=== PATIENT | female | born 1950 | race Two or more races ===

== ENCOUNTER 2024-12-24 22:34 | Emergency (ER) | payer MEDICAID, SELFPAY ==
[2024-12-24 22:34] VITALS: BMI 34.7
[2024-12-24 23:12] VITALS: BP 123/83; PULSE 72; RESP 18; TEMP 36.8; O2SAT 98
--- NOTE | 2024-12-24 23:25 | XR_ITS ---
Examination: Abdomen sonogram, Limited Date and time of exam: December 24, 2024, 11:44 PM. Indications: Onset right upper abdominal pain beginning 3 days ago. Technique: Real-time boland scale transabdominal sonographic images of the upper abdomen obtained. Findings: Normal gallbladder. Normal common bile duct 0.3 cm. Pancreas obscured by bowel gas. Liver 13.0 cm smooth contour no focal liver lesions. Normal hepatopedal portal venous flow. Patent IVC. Impression: Normal gallbladder Normal common bile duct
--- NOTE | 2024-12-24 23:25 | EDRME_ITS ---
Rapid Medical Screening Exam [facility] Arrival date/time: 12/24/24 22:34 74F with history of DM and HTN presents to ED with several days of RUQ pain and N/V. Chief Complaint: Abdominal Pain Vital signs: Vital Signs Temperature 98.3 F 12/24/24 23:12 Pulse Rate 72 12/24/24 23:12 Respiratory Rate 18 12/24/24 23:12 Blood Pressure 123/83 12/24/24 23:12 Pulse Oximetry (%) 98 12/24/24 23:12 Oxygen Delivery Method Room Air 12/24/24 23:12
[2024-12-25 00:04] LABS: Basophils # (Auto) 0.0 Thou/mm3 (0.0-0.2); Basophils % (Auto) 1 % (0-2.5); Eosinophils # (Auto) 0.2 Thou/mm3 (0.0-0.5); Eosinophils % (Auto) 3 % (0-10); Hematocrit 39.7 % (36.0-46.0); Hemoglobin 13.2 g/dL (12.0-16.0); Immature Granulocytes Auto 0.02 Thou/mm3 (0.00-0.00); Lymphocytes # (Auto) 2.9 Thou/mm3 (1.0-4.8); Lymphocytes % (Auto) 36 % (10-50); Mean Corpuscular HGB Conc 33.2 g/dl (31.0-37.0); Mean Corpuscular Hemoglobin 31.0 pg (25.0-35.0); Mean Corpuscular Volume 93 fL (80-100); Monocytes # (Auto) 0.5 Thou/mm3 (0.0-0.8); Monocytes % (Auto) 6 % (0-12); Neutrophils # (Auto) 4.3 Thou/mm3 (1.8-7.7); Neutrophils % (Auto) 54 % (37-80); Nucleated Red Blood Cell # 0.00 Thou/mm3 (0.00-0.00); Nucleated Red Blood Cell % 0 /100 WBC (0); Platelet Count 224 Thou/mm3 (140-440); RDW Standard Deviation 42.2 fL (36.4-46.3); Red Blood Count 4.26 Miln/mm3 (4.00-5.20); White Blood Count 7.9 Thou/mm3 (3.6-11.0)
[2024-12-25 00:14] LABS: Alanine Aminotransferase 13 U/L (10-49); Albumin, Serum 4.2 gm/dL (3.4-4.8); Albumin/Globulin Ratio 2.1 (1.2-2.2); Alkaline Phosphatase 99 U/L (46-116); Anion Gap 8 (7-16); Aspartate Amino Transferase 17 U/L (0-34); BUN/Creatinine Ratio 23 Ratio (12-20); Bilirubin,Total 0.4 mg/dL (0.3-1.2); Blood Urea Nitrogen 14 mg/dL (9-23); Calcium 10.2 mg/dL (8.3-10.6); Calcium (Corrected) 10.2 mg/dL (8.5-10.1); Carbon Dioxide 28.1 mMol/L (20.0-31.0); Chloride 108 mMol/L (98-107); Creatinine (Component) 0.6 mg/dL (0.6-1.3); Estimated Creatinine Clearance 86.3 mL/min (>60); Globulin 2.0 gm/dL (2.3-3.5); Glucose 110 mg/dL (74-106); Lipase 49 U/L (12-53); Osmolality,Calculated 288 (275-295); Potassium 4.0 mMol/L (3.4-5.1); Sodium 144 mMol/L (136-145); Total Protein 6.2 gm/dL (5.7-8.2); eGFR > 60 See Note
[2024-12-25 00:28] LABS: Collection Type, Urine Clean Catch
--- NOTE | 2024-12-25 00:32 | XR_ITS ---
Examination: CT abdomen with intravenous contrast CT pelvis with intravenous contrast 2-D coronal reconstructions 2-D sagittal reconstructions Date and time of exam:December 25, 2024, 0059 hrs. Indications: Right upper abdominal pain beginning one week ago.. CTDI: vol (mGy) 25.41 DLP: (mGycm) 1102 Technique: Multiple axial sections of the abdomen and pelvis have been obtained. 64 slice high-resolution scanner used. 3 mm axial sections have been obtained, post intravenous injection 60 cc [id number] 2-D sagittal, coronal reconstructions obtained. Low dose protocols were performed. One or more of the following dose reduction techniques were used; automated exposure control, adjustment of the mA and/or KV according to patient size, use of iterative reconstruction technique. Findings: No focal liver or splenic lesions. No gallstones. No pancreatic or adrenal mass. Mild renal scar formation. No renal or ureteral calculi, no hydronephrosis. Aortic calcification no aneurysmal dilatation. Normal appendix. Colonic diverticulosis, no diverticulitis. No pelvic mass. Bladder intact. Advanced degenerative disc disease L2-L3, L5-S1 Impression: No acute process in the abdomen or pelvis.
--- NOTE | 2024-12-25 00:32 | PD.EDABDPN ---
ED Abdominal Pain RME/HPI General Chief Complaint: Abdominal Pain Stated complaint: PAIN IN UPPER RIGHT QUADRANT Time seen by provider: 12/25/24 00:27 Arrival date/time: 12/24/24 22:34 RME / HPI RME / HPI narrative: 12/24/24 22:34 74F with history of DM and HTN presents to ED with several days of RUQ pain and N/V. DR. MELENDREZ MAIN ED EVALUATION: 74 y/o female with Hx of HTN, Type II DM, and Hypercholesterolemia presents to ED c/o RUQ abdominal pain that radiates to the back x 3 days. Patient also reports 1 day of vomiting. Denies cough. Also denies history of abdominal surgery. She has never experienced this pain before. No other concerns or complaints expressed at this time. Related Data Home Medications ?Medication ?Instructions ?Recorded ?Confirmed aspirin 81 mg tablet,delayed 81 mg PO DAILY 03/30/21 04/02/21 release atorvastatin 10 mg tablet 10 mg PO QDAY 03/30/21 04/02/21 cholecalciferol (vitamin D3) 25 25 mcg PO QDAY 03/30/21 04/02/21 mcg (1,000 unit) tablet (Vitamin D3) lisinopril 20 mg tablet 20 mg PO QDAY 03/30/21 04/02/21 metformin 500 mg tablet 500 mg PO QDAY 03/30/21 04/02/21 Previous Rx's ?Medication ?Instructions ?Recorded tramadol 50 mg tablet 50 mg PO BID PRN pain #10 tabs 12/28/17 cyclobenzaprine 10 mg tablet 10 mg PO BID #10 tabs 08/26/21 clindamycin HCl 300 mg capsule 300 mg PO Q8H #20 caps 02/25/23 hydrocodone 5 mg-acetaminophen 325 1 tab PO Q8H PRN pain #10 tabs 02/25/23 mg tablet dicyclomine 20 mg tablet 20 mg PO QID PRN abdominal pain 12/25/24 #20 tabs ondansetron 4 mg disintegrating 4 mg PO Q6H PRN nausea and 12/25/24 tablet vomiting #20 tabs Allergies Allergy/AdvReac Type Severity Reaction Status Date / Time naproxen (From Naprosyn) Allergy Intermediate EYES SWELL Verified 02/25/23 07:40 UP Review of Systems Review of Systems Systems Reviewed: All systems reviewed, normal except as documented Past Medical History Past Medical History CARDIAC: Positive Cardiac Disorders, Hypercholesterolemia and Hypertension GASTROINTESTINAL: Positive Gastrointestinal Disorders and Gastroesophageal Reflux Disease REPRODUCTIVE: Positive Previous Pregnancies MUSCULOSKELETAL: Positive Musculoskeletal Disorders and Arthritis ENT: Positive Cataracts (FOR THIS PROC) ENDOCRINE: Positive Endocrine Disorders and Diabetes Mellitus Type 2 OTHER HISTORY: Positive Chicken Pox and Measles ED Exam Narrative Physical exam: Generally patient is alert in no obvious distress, heart regular rate and rhythm, lungs clear to auscultation bilaterally, abdomen soft bowel sounds present nondistended right upper quadrant abdominal tenderness without rebound or Carpenter sign, muscular skeletal exam showed no obvious costovertebral angle tenderness skin is warm pale and dry without rash neurologic exam showed John Coma Scale of 15 Course Quality Measures none Orders Category Date Time Status CT Screening NOW Care 12/25/24 00:[address] abdomen pelvis w con Stat Exams 12/25/24 00:32 Taken US gall bladder Stat Exams 12/24/24 23:25 Taken CBC Stat Lab 12/24/24 23:32 Completed CMP [Comprehensive Metabolic Panel] Stat Lab 12/24/24 23:32 Completed Lipase Stat Lab 12/24/24 23:32 Completed Urinalysis, C/S if Indicated Stat Lab 12/25/24 00:21 Completed Morphine Inj Med 12/25/24 00:39 Discontinued 4 mg IVP X1 ONE Ondansetron Inj [Zofran Inj] Med 12/25/24 00:44 Discontinued 4 mg .ROUTE .STK-MED ONE Ondansetron Inj [Zofran Inj] Med 12/25/24 00:44 Discontinued 4 mg IVP X1 ONE Vital Signs Vital signs: Vital Signs Temperature 98.3 F 12/24/24 23:12 Pulse Rate 72 12/24/24 23:12 Respiratory Rate 18 12/24/24 23:12 Blood Pressure 123/83 12/24/24 23:12 Pulse Oximetry (%) 98 12/24/24 23:12 Oxygen Delivery Method Room Air 12/24/24 23:12 Abdominal Pain MDM MDM Narrative MDM Narrative:: Scribe Attestation: Mi Valles am scribing for and in the presence of Dr. Melendrez. Provider Notation: Although this document has been carefully reviewed, there may still be some phonetic and other typographical errors. These errors are purely grammatical due to imperfections in the software program and should not be construed in any way to? compromise the substance of the patient's medical care during this visit. Differential diagnosis: Cholecystitis, cholelithiasis, UTI, kidney stone, bowel obstruction, intra-abdominal infection, bowel spasm I interpreted all labs. There is no leukocytosis. LFTs were normal. Gallbladder ultrasound was negative. CT scan done the abdomen pelvis with IV contrast was unremarkable. Patient received morphine 4 mg IV and Zofran 4 mg IV with benefit. Bentyl and Zofran as prescribed. Follow-up with her doctor. Return to ER as needed or if condition worsens. Patient data External records reviewed:: [facility] previous records (Reviewed prior ED records from 08/11/23. Patient was seen for Chest pain.) Clinical information provided by:: patient Social determinants that could affect healthcare access:: none Patient has the following chronic illnesses:: Hypercholesterolemia, Hypertension, Gastroesophageal Reflux Disease, Arthritis, Diabetes Mellitus Type 2 How is presenting disease/condition affected by chronic disease/condition?: exacerbated by Evaluation data The following diagnostics were reviewed and interpreted by me:: lab results and radiology exam(s) Lab and/or radiology exams considered but not ordered:: None Interpretation Summary: RADIOLOGY Gall Bladder US: Findings: The evaluation is limited due to overlying excessive bowel gas and body habitus. The visualized liver is normal in echogenicity without mass or ductal dilatation. The main portal vein is patent and demonstrates hepatopetal flow. The wall of gallbladder measures 3 mm. No gallbladder calculus or pericholecystic fluid is identified. The common duct is normal in caliber at 3 mm. The pancreas is not visualized, due to obscured by bowel gas. The inferior vena cava is unremarkable to the extent visualized. The abdominal aorta is not imaged/not demonstrated. Impression: Limited evaluation as described. No sonographic evidence of cholelithiasis, acute cholecystitis or biliary obstruction. Abdomen/Pelvis CT: Medications / Prescriptions Medications or Prescriptions considered but not ordered:: None Medication administrations:: Medication Administration History Discontinued Medications Morphine Sulfate (Morphine Sulf Inj 10 Mg/Ml Vial) 4 mg IVP X1 ONE Stop: 12/25/24 00:40 Last Admin: 12/25/24 00:47 Dose: 4 mg Documented By: DT Ondansetron HCl (Ondansetron Inj 2 Mg/Ml Inj 2 Ml) 4 mg IVP X1 ONE; Protocol Stop: 12/25/24 00:45 Last Admin: 12/25/24 00:47 Dose: 4 mg Documented By: DT Ondansetron HCl (Ondansetron Inj 2 Mg/Ml Inj 2 Ml) Confirm Administered Dose 4 mg .ROUTE .STK-MED ONE Stop: 12/25/24 00:45 Last Admin: 12/25/24 00:48 Dose: Not Given Documented By: DT Non-Admin Reason: overide See above if any. Consultations Consultation(s) initiated? (list below): No Diagnosis Differential diagnosis abdominal pain: abdominal pain, acute appendicitis, calculus of kidney, constipation, diverticulitis, gastroenteritis, pancreatitis, small bowel obstruction and other (Cholecystitis) Most likely diagnosis given after review of the tests above:: None Admission Indicated Admission indicated?: not indicated Admission Request Was there a request for admission?: No Disposition Plan Disposition Plan: Discharge Discharge Attestation Discharge Attestation: The patient and all family members were given an opportunity to ask questions and understood the discharge instructions. Discharge instructions specifically effects, indications for sooner follow up or return to the emergency department, and the expected course of current diagnosis. Patient condition: Stable Discharge Plan Plan Patient Disposition: HOME (Self Care) Prescriptions/Referrals Prescriptions/Med Rec: New ondansetron 4 mg tablet,disintegrating 4 mg PO Q6H PRN (Reason: nausea and vomiting) Qty: 20 0RF dicyclomine 20 mg tablet 20 mg PO QID PRN (Reason: abdominal pain) Qty: 20 0RF No Action tramadol 50 mg tablet 50 mg PO BID PRN (Reason: pain) Qty: 10 0RF cyclobenzaprine 10 mg tablet 10 mg PO BID MDD 2 Qty: 10 0RF metformin 500 mg Tablet 500 mg PO QDAY atorvastatin 10 mg Tablet 10 mg PO QDAY lisinopril 20 mg Tablet 20 mg PO QDAY aspirin [Aspir-81] 81 mg Tablet,Delayed Release (Dr/Ec) 81 mg PO DAILY cholecalciferol (vitamin D3) [Vitamin D3] 25 mcg (1,000 unit) Tablet 25 mcg PO QDAY clindamycin HCl 300 mg capsule 300 mg PO Q8H Qty: 20 0RF hydrocodone-acetaminophen 5-325 mg tablet 1 tab PO Q8H MDD 3 tabs/day PRN (Reason: pain) Qty: 10 0RF Problem List Clinical Impression: Abdominal pain Patient/Caregiver Discharge Instructions Education Materials: Abdominal Pain Additional Instructions: Ultrasound and CT scan were normal. Medication as prescribed. Follow-up with your doctor for further treatment and evaluation. Print Language: Mauritian Stand Alone Forms: [employer] Award Info., Patient Portal Info Letter
[2024-12-25 00:33] LABS: Bilirubin,Urine Negative (Negative); Blood,Urine 1+ (Negative); Clarity,Urine Clear (Clear/Hazy); Color,Urine Yellow (Lt Yel-Yel); Culture Indicated,Urine Not Indicated; Glucose, Urine Negative (Negative); Ketones,Urine Negative (Negative); Leukocyte Esterase,Urine Positive (Negative); Nitrite,Urine Negative (Negative); PH,Urine 5.5 (5.0-7.0); Protein,Urine Negative (Neg - Trace); RBC,Urine 5 /hpf (0-3); Specific Gravity,Urine 1.028 (1.001-1.035); Squamous Epithelial Cell,Urine 1 /hpf (0-5); Urobilinogen,Urine Negative mg/dL (0.0-1.0); WBC,Urine 2 /hpf (0-5)
[2024-12-25 00:36] VITALS: BP 170/91; PULSE 60; RESP 14; TEMP 37; O2SAT 95
[2024-12-25] MEDS: ONDANSETRON INJ 2 MG/ML INJ 2 ML 4 MG IVP (00:47)
[2024-12-25] MEDS: MORPHINE SULF INJ 10 MG/ML VIAL 4 MG IVP (00:47)
--- NOTE | 2024-12-25 01:03 | PRELIM_ITS ---
Gallbladder ultrasound. December 24, 2024 at 2344 hours Clinical history: RUQ/epigastric. Technique: Grayscale and color flow images of the right upper quadrant are provided. Hepatic and portal veins were also imaged with color flow images. Comparison: No prior study is available for comparison. Findings: The evaluation is limited due to overlying excessive bowel gas and body habitus. The visualized liver is normal in echogenicity without mass or ductal dilatation. The main portal vein is patent and demonstrates hepatopetal flow. The wall of gallbladder measures 3 mm. No gallbladder calculus or pericholecystic fluid is identified. The common duct is normal in caliber at 3 mm. The pancreas is not visualized, due to obscured by bowel gas. The inferior vena cava is unremarkable to the extent visualized. The abdominal aorta is not imaged/not demonstrated. Impression: Limited evaluation as described. No sonographic evidence of cholelithiasis, acute cholecystitis or biliary obstruction. Report Electronically Signed By: Sarath Malhotra 12/25/2024 1:02:45 AM [EST]
--- NOTE | 2024-12-25 01:42 | PRELIM_ITS ---
CT scan of the abdomen and pelvis with intravenous contrast (axial sections with sagittal and coronal reformats); December 25, 2024 at 0059 hours Clinical History: Abdominal pain. Comparison: No prior study is available for comparison. Findings: The lung bases are clear. The liver, gallbladder, pancreas, spleen, kidneys and adrenals are unremarkable. No evidence of bowel obstruction. The appendix is within normal limits. A moderate amount of fecal material is present in the colon. There are occasional colonic diverticula without evidence of diverticulitis. There is no mesenteric or retroperitoneal adenopathy. The urinary bladder is incompletely distended at the time of the examination. The uterus and adnexa are unremarkable. There is no free fluid or free air. Degenerative changes are identified in the spine. Impression: No evidence of bowel obstruction, free air or abscess. Other findings as described above. Report Electronically Signed By: Sarath Malhotra 12/25/2024 1:41:28 AM [EST]
[2024-12-25 02:24] VITALS: BP 154/77; PULSE 62; RESP 14; TEMP 37; O2SAT 99
== END 2024-12-25 02:26 | disposition home or self-care (01) ==
LOC: SERX 12-25 02:57
PROVIDERS: Physician Assistant; Emergency Provider Emergency Medicine; PCP Physician Assistant
DX: R10.11 Right upper quadrant pain (principal); R11.2 Nausea with vomiting, unspecified
CPT/HCPCS: 36415; 74177; 76705; 80053; 81001; 83690; 85025; 96374; 96375; 99283; A4649; J2270; J2405; Q9967